=== PATIENT | female | born 1970 | race Caucasian/White ===

== ENCOUNTER 2018-09-17 16:18 | Inpatient (IN) | payer OTHER ==
[2018-09-17 22:25] VITALS: BMI 21.2
--- NOTE | 2018-09-18 01:00 | HP ---
COWS - Scale Resting Pulse: 1= [place] 81-100 Sweatin=Flushed/Facial Moisture Restless Observation: 1= Difficult to Sit Still Pupil Size: 2= Moderately Dilated (Pupils = 5 mm) Bone or Joint Aches: 2= Severe Diffuse Aches Runny Nose/ Eye Tearin= Runny Nose/Eyes GI Upset > 30mins: 1= Stomach Cramp Tremor Observation: 4= Gross Tremor/Twitching Yawning Observation: 1= 1-2x During Session Anxiety or Irritability: 1=Feels Anxious/Irritable Goose Flesh Skin: 0=Smooth Skin COWS Score: 17 CIWA Score Nausea/Vomitin Muscle Tremors: 4-Moderate,w/Arms Extend Anxiety: 1-Mildly Anxious Agitation: 1-Slight > Activity Paroxysmal Sweats: 3 (Increased facial mositure) Orientation: 0-Oriented Tacttile Disturbances: 0-None Auditory Disturbances: 0-None Visual Disturbances: 0-None Headache: 2-Mild CIWA-Ar Total Score: 14 - Admission Criteria OASAS Guidelines: Admission for Medically Managed Detox: Requires at least one of the followin. CIWA greater than 12 2. Seizures within the past 24 hours 3. Delirium tremens within the past 24 hours 4. Hallucinations within the past 24 hours 5. Acute intervention needed for co occurring medical disorder 6. Acute intervention needed for co occurring psychiatric disorder 7. Severe withdrawal that cannot be handled at a lower level of care (continued vomiting, continued diarrhea, abnormal vital signs) requiring intravenous medication and/or fluids 8. Patient presents the following: CIWA greater than 12 Admission Criteria Met: Admission criteria met Admission ROS [facility] Chief Complaint: heroin and alcohol withdrawal. Allergies/Adverse Reactions: Allergies Allergy/AdvReac Type Severity Reaction Status Date / Time No Known Drug Allergies Allergy Verified 09/17/18 22:14 raw onion Allergy Mild Nausea Uncoded 09/17/18 22:13 History of Present Illness: 48 yo w/ heroin and alcohol withdrawal presenting for detox. Was in [facility] ED from 09/15-09/[address] [facility] for detox. States seen in [facility] ED 3 days ago and dx w/ a vertebral fx. Heroin use since age 25. Current use decreases to 12 bags/day for last 4-5 months. Re-uses needles. Denies sharing needles or works. No Narcan. States Oxycodone given in ED Alcohol use since age 14. Current use 1 pint/day x past 4-5 months. Illicit Methadone use x 1- 2 times in past month. Cocaine use since age 19. Nasal Hx: seizures - last 9 months ago. Anup hx overdoses. U-tox (+) OPI, KATARINA, FEN, OXY, MTD KIM = 0 HCG - neg Homeless. Denies recent incarceration. PMHx: Chronic back pain w/ scitaica, gastric ulcer disease w/ GERD; heart problems w/past endocarditis, hx Lyme's disease; vertebral fx MHHx: Denies depression. Denies thoughts of harming self or others. Patient Name: Maru Klein Date: 1970 Address: [address] [place] [address] Sex: Female Rx Written Rx Dispensed Drug Quantity Days Supply Prescriber Name 10/28/2017 10/28/2017 alprazolam 2 mg tablet 60 30 Maria Luisa Harper Search Terms: Maru Tarango, 1970 Search Date: 09/18/2018 12:56:26 AM States Searched: [place], [place], [place], [place], [place], [place], [place] The Drug Utilization Report below displays the controlled substance prescriptions, if any, that were dispensed in the indicated state(s). The information displayed on this report is compiled from requests submitted to other states' PMPs, and accurately reflects the information as returned by them. Blank griffiths indicate data not provided by other state. This report was requested by: Sara Chao | Reference #: [id number] Exam Limitations: No Limitations - Ebola screening Have you traveled outside of the country in the last 21 days: No (N) Have you had contact with anyone from an Ebola affected area: No Have you been sick,other than usual withdrawal symptoms: No (Denies recent exposure to measles) Do you have a fever: No - Review of Systems Constitutional: Chills, Diaphoresis, Fever, Changes in sleep (Difficulty falling and staying asleep) EENT: reports: Blurred Vision, Nose Congestion, Dental Problems (Broken and missing teeth. Chews and swallows ok.) Respiratory: reports: Shortness of Breath, SOB with Exertion Cardiac: reports: Chest Pain (chronic w/ deep breath or yawns), Other (Murmur) GI: reports: Diarrhea (soft, brownish, no blood), Nausea, Indigestion (heart burn) : reports: No Symptoms Reported Musculoskeletal: reports: Back Pain (Chronic low back crushing nerve skooting pain "8" w/ radiation to hips down legs. Increases w/ certain positions, l; ifting legs. Improves w/ walking.) Integumentary: reports: No Symptoms Reported Neuro: reports: Headache (achy pressure frontal [place]), Numbness (hands, legs and feet, back), Tremors, Unsteady Gait Endocrine: reports: Intolerance to Cold Hematology: reports: No Symptoms Reported Psychiatric: reports: Judgement Intact, Orientated x3, Agitated, Anxious Other Systems: Reviewed and Negative Patient History - Patient Medical History Hx Anemia: Yes (WAS TOLD SHE HAD ANEMIA) Hx Asthma: No Hx Chronic Obstructive Pulmonary Disease (COPD): No Hx Cancer: No (PRE-CANCEROUS CERVICAL LESION,REMOVED) Hx Cardiac Disorders: No Hx Congestive Heart Failure: No Hx Hypertension: No Hx Hypercholesterolemia: No Hx Pacemaker: No HX Cerebrovascular Accident: No Hx Seizures: Yes (etoh and drug related seizures last 1 1/2 yr ago) Hx Dementia: No Hx Diabetes: No Hx Gastrointestinal Disorders: No Hx Liver Disease: Yes Hx Genitourinary Disorders: No Hx Sexually Transmitted Disorders: Yes (HPV) Hx Renal Disease (ESRD): No Hx Thyroid Disease: Yes ( A TEENAGER SHE HAD HYPERTHYROIDISM) Hx Human Immunodeficiency Virus (HIV): No Hx Hepatitis C: Yes (NEEDS TREATMENT) Hx Depression: No Hx Suicide Attempt: No Hx Bipolar Disorder: No Hx Schizophrenia: No - Patient Surgical History Past Surgical History: Yes Other Surgical History: cervix sx in - PPD History Previous Implant?: Yes Documented Results: Negative w/proof Implanted On Prior R Admission?: Yes Date: 05/07/14 PPD to be Administered?: No - Reproductive History Patient is a Female of Child Bearing Age (11 -55 yrs old): Yes Last Menstrual Period: 04/17/14 Patient : No - Smoking Cessation Smoking history: Current every day smoker Have you smoked in the past 12 months: Yes Aproximately how many cigarettes per day: 20 Hx Chewing Tobacco Use: No Initiated information on smoking cessation: Yes 'Breaking Loose' booklet given: 09/18/18 - Substance & Tx. History Hx Alcohol Use: Yes Hx Substance Use: Yes Substance Use Type: Alcohol, Cocaine, Heroin, Opiates (Illicit MTD) Hx Substance Use Treatment: Yes (detox, rehab, past MMTP) - Substances abused Heroin Substance route: Injection Frequency: Daily Amount used: 12bags Age of first use: 25 Date of last use: 09/15/18 Alcohol Substance route: Oral Frequency: Daily Amount used: 1 pint Age of first use: 14 Date of last use: 09/15/18 Cocaine Substance route: Inhalation Frequency: 1-3 times last 30 days Amount used: 1 dime Age of first use: 19 Date of last use: 09/15/18 Family Disease History - Family Disease History Family Disease History: Diabetes: Mother (HTN), Heart Disease: Mother, Other: Brother (ALCOHOL), Sister (ALCOHOL) Admission Physical Exam [facility] - Vital Signs Vital Signs: Vital Signs - 24 hr 09/17/18 22:08 Temperature 99.9 F H Pulse Rate 87 Respiratory 16 Rate Blood Pressure 118/72 - Physical General Appearance: Yes: Moderate Distress, Thin, Tremorous, Sweating ( Increased facial mositure), Anxious HEENTM: Yes: EOMI, Hearing grossly Normal, Normocephalic, Normal Voice, IVAN ( Pupils = 5 mm), Pharynx Normal, Nasal Congestion, Rhinorrhea Respiratory: Yes: Lungs Clear (O2 sat = 99%), Normal Breath Sounds, No Respiratory Distress Neck: Yes: No masses,lesions,Nodules, Supple Breast: Yes: Breast Exam Deferred Cardiology: Yes: Regular Rhythm, Regular Rate, S1, S2, Murmur Abdominal: Yes: Non Tender, Flat, Soft, Increased Bowel Sounds Genitourinary: Yes: Within Normal Limits Back: Yes: Normal Inspection (No obvious abnormalitie noted) Musculoskeletal: Yes: Other (UInsteady gait) Extremities: Yes: Normal Capillary Refill, Tremors 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 Increased warmth, erythema, and induration (L) carf area ; other areases of increased induration noted on (R) calf and (R) wrist area.) Lymphatic: Yes: Within Normal Limits - Diagnostic (1) Alcohol dependence with uncomplicated withdrawal Current Visit: Yes Status: Acute (2) Opioid dependence with withdrawal Current Visit: Yes Status: Acute (3) Nicotine dependence, uncomplicated Current Visit: Yes Status: Acute (4) Chronic back pain Current Visit: Yes Status: Acute (5) Cellulitis Current Visit: Yes Status: Acute (6) History of endocarditis Current Visit: Yes Status: Acute (7) Cocaine dependence, uncomplicated Current Visit: Yes Status: Acute (8) IVDU (intravenous drug user) Current Visit: Yes Status: Acute (9) GERD (gastroesophageal reflux disease) Current Visit: Yes Status: Acute (10) Hx of Lyme disease Current Visit: Yes Status: Acute Cleared for Admission S - Detox or Rehab [facility] Level of Care: Medically Managed Detox Regimen/Protocol: Methadone/Librium Claeared for Rehab Admission: No Breathalyzer - Breathalyzer Breathalyzer: 0 Urine Drug Screen - Test Device Lot number: [id number] Expiration date: 05/20/20 - Control Is test valid?: Yes - Results Drug screen NEGATIVE: No Urine drug screen results: KATARINA-Cocaine, FEN-Fentanyl, MOP-Opiates, OXY-Oxycodone , MTD-Methadone Inpatient Rehab Admission - Rehab Decision to Admit Inpatient rehab admission?: No
[2018-09-18] MEDS ORDERED: chlordiazePOXIDE HCL 25 MG CAPSULE PO ONE (01:45)
[2018-09-18] MEDS ORDERED: METHADONE HCL 10 MG TABLET (FOR DETOX USE ONLY) PO ONE ×2 (01:45→10:00)
[2018-09-18] MEDS ORDERED: cloNIDine HCL 0.1 MG TABLET PO PRN (01:45)
[2018-09-18] MEDS ORDERED: MAG HYDROX/AL HYDROX/SIMETH 30 ML UNIT-DOSE CUP PO PRN (01:47)
[2018-09-18] MEDS ORDERED: NICOTINE POLACRILEX 2 MG GUM BUC PRN (01:47)
[2018-09-18] MEDS ORDERED: ACETAMINOPHEN 325 MG TABLET (FP) PO PRN ×2 (01:47)
[2018-09-18] MEDS ORDERED: MAGNESIUM HYDROX 2400MG/30ML ORAL SUSPENSION 30 ML CUP PO PRN (01:47)
[2018-09-18] MEDS ORDERED: IBUPROFEN 400 MG TABLET (FP) PO PRN (01:47)
[2018-09-18] MEDS ORDERED: MAGNESIUM CITRATE 300 ML BOTTLE PO PRN (01:47)
[2018-09-18] MEDS ORDERED: MENTHOL/PHENOL 1 EACH UD MM PRN (01:47)
[2018-09-18] MEDS: CEPHALEXIN MONOHYDRATE 500 MG CAPSULE (UD) PO SCH ×3 (06:34→18:26)
[2018-09-18] MEDS: GABAPENTIN 100 MG CAPSULE (FP) PO SCH ×3 (06:34→22:37)
[2018-09-18] MEDS: chlordiazePOXIDE HCL 25 MG CAPSULE PO SCH ×4 (06:34→22:37)
--- NOTE | 2018-09-18 09:51 | PN ---
S CIWA - CIWA Score Nausea/Vomitin-No Nausea/No Vomiting Muscle Tremors: 2 Anxiety: 2 Agitation: 2 Paroxysmal Sweats: 4-Forehead w/Sweat Beads Orientation: 0-Oriented Tacttile Disturbances: 0-None Auditory Disturbances: 0-None Visual Disturbances: 0-None Headache: 2-Mild CIWA-Ar Total Score: 12 S COWS - Scale Resting Pulse: 0= [place] 80 or Below Sweatin=Flushed/Facial Moisture Restless Observation: 1= Difficult to Sit Still Pupil Size: 0= Normal to Room Light Bone or Joint Aches: 1= Mild Discomfort Runny Nose/ Eye Tearin= None GI Upset > 30mins: 0= None Tremor Observation of Outstretched Hands: 2= Slight Tremor Visible Yawning Observation: 2= >3x During Session Anxiety or Irritability: 2=Irritable/Anxious Goose Flesh Skin: 0=Smooth Skin COWS Score: 10 S Progress Note (SOAP) Subjective: c/o sweats, irritability, anxiety, headache, and shakes. Objective: 09/18/18 09:50 Vital Signs 09/18/18 09/18/18 02:45 06:00 Temperature 99.5 F 98.4 F Pulse Rate 76 64 Respiratory 16 16 Rate Blood Pressure 108/61 100/64 Labs pending. Assessment: 09/18/18 09:50 AOX3, in no acute distress Full ROM, ambulating in the unit. withdrawal symptoms. Plan: continue detox increase fluids.
[2018-09-18] MEDS: LACTOBACILLUS ACIDOPHILUS 1 TABLET PO SCH (10:28)
[2018-09-18 10:30] LABS: ALBUMIN 2.2 g/dl (3.4-5.0); BILIRUBIN,TOTAL 0.2 mg/dL (0.2-1); BLOOD UREA NITROGEN 15.9 mg/dL (7-18); CALCIUM 8.2 mg/dL (8.5-10.1); CREATININE 0.8 mg/dL (0.55-1.3); POTASSIUM 3.4 mmol/L (3.5-5.1); TOT PROT 7.7 g/dl (6.4-8.2)
[2018-09-18] MEDS: PRENATAL VITAMINS W/ FOLIC ACID TABLET (FP) PO SCH (10:41)
[2018-09-18 10:42] LABS: HEMATOCRIT 31.8 % (32.4-45.2); HEMOGLOBIN 10.6 GM/dL (10.7-15.3); MCHC 33.2 g/dl (32.0-36.0); MEAN CELL VOLUME 84.3 fl (80-96); MEAN PLT VOLUME 7.3 fl (7.5-11.1); RBC 3.78 M/mm3 (3.60-5.2); RDW 16.4 % (11.6-15.6)
[2018-09-18] MEDS: NICOTINE 21 MG/24 HOURS TOPICAL PATCH TD SCH (10:42)
[2018-09-18 11:33] LABS: PLATELET COUNT 335 K/MM3 (134-434)
[2018-09-18] MEDS: THIAMINE HCL 100 MG TABLET (FP) PO SCH (22:37)
[2018-09-19] MEDS: CEPHALEXIN MONOHYDRATE 500 MG CAPSULE (UD) PO SCH ×4 (01:04→17:41)
[2018-09-19] MEDS: chlordiazePOXIDE HCL 25 MG CAPSULE PO SCH ×4 (07:30→22:35)
[2018-09-19] MEDS: GABAPENTIN 100 MG CAPSULE (FP) PO SCH ×3 (07:30→22:34)
[2018-09-19] MEDS ORDERED: METHADONE HCL 10 MG TABLET (FOR DETOX USE ONLY) PO ONE (10:00)
[2018-09-19] MEDS: LACTOBACILLUS ACIDOPHILUS 1 TABLET PO SCH (10:28)
[2018-09-19] MEDS: PRENATAL VITAMINS W/ FOLIC ACID TABLET (FP) PO SCH (10:28)
[2018-09-19] MEDS: NICOTINE 21 MG/24 HOURS TOPICAL PATCH TD SCH (10:40)
--- NOTE | 2018-09-19 13:42 | PN ---
[facility] CIWA - CIWA Score Nausea/Vomitin-Mild Nausea/No Vomiting Muscle Tremors: 3 Anxiety: 3 Agitation: 3 Paroxysmal Sweats: 3 Orientation: 0-Oriented Tacttile Disturbances: 0-None Auditory Disturbances: 0-None Visual Disturbances: 0-None Headache: 0-None Present CIWA-Ar Total Score: 13 S COWS - Scale Resting Pulse: 0= [place] 80 or Below Sweatin= Chills/Flushing Restless Observation: 3= Extraneous Movement Pupil Size: 0= Normal to Room Light Bone or Joint Aches: 2= Severe Diffuse Aches Runny Nose/ Eye Tearin= Nasal Congestion GI Upset > 30mins: 1= Stomach Cramp Tremor Observation of Outstretched Hands: 2= Slight Tremor Visible Yawning Observation: 0= None Anxiety or Irritability: 2=Irritable/Anxious Goose Flesh Skin: 0=Smooth Skin COWS Score: 12 S Progress Note (SOAP) Subjective: Profuse sweating, runny nose, abdominal cramps, headache, interrupted sleep, angry, irritable Objective: 09/19/18 13:39 Last Vital Signs Temp Pulse Resp BP Pulse Ox 96.8 F L 70 18 94/54 L 09/19/18 06:00 09/19/18 06:00 09/19/18 06:30 09/19/18 06:00 Hypotension noted (94/54), asymptomatic Laboratory Tests 09/18/18 09/18/18 09/18/18 07:50 07:50 07:50 WBC 7.0 RBC 3.78 Hgb 10.6 L Hct 31.8 L D MCV 84.3 MCH 28.0 MCHC 33.2 RDW 16.4 H Plt Count 335 D MPV 7.3 L D Sodium 140 Potassium 3.4 L Chloride 105 Carbon Dioxide 30 Anion Gap 5 L BUN 15.9 Creatinine 0.8 Est GFR (CKD-EPI)AfAm 101.75 Est GFR (CKD-EPI)NonAf 87.79 Random Glucose 100 Calcium 8.2 L Total Bilirubin 0.2 AST 32 ALT 41 Alkaline Phosphatase 202 H Total Protein 7.7 Albumin 2.2 L RPR Titer Nonreactive Labs reviewed: mild anemia, K 3.4, Ca 8.2, alk phos 202 Assessment: 09/19/18 13:50 Withdrawal symptoms Noted with hypokalemia, anemia, hypocalcemia and elevated alk phos Plan: Continue detox Encouraged PO water hydration Hypokalemia: K Dur 40 mEq PO x 1 dose, repeat serum K level on Thursday Anemia: could be r/t substance use, need anemia workup (can be done by PCP) Hypocalcemia: start calcium carbonate 650mg bid x 3 days, repeat serum calcium level on Thursday Elevated alk phos: could be r/t substance use or possible trauma; repeat alk phos level
[2018-09-19] MEDS ORDERED: POTASSIUM CHLORIDE TABS 20 MEQ TABLET.ER (FP) PO ONE (13:46)
[2018-09-19] MEDS: chlordiazePOXIDE HCL 25 MG CAPSULE PO PRN (14:56)
[2018-09-19] MEDS: METHOCARBAMOL 500 MG TABLET PO PRN ×2 (17:41→23:29)
[2018-09-19] MEDS: CALCIUM CARBONATE 650 MG TABLET PO SCH (22:34)
[2018-09-19] MEDS: THIAMINE HCL 100 MG TABLET (FP) PO SCH (22:34)
[2018-09-19] MEDS: MELATONIN 5 MG TABLETS PO PRN (22:35)
[2018-09-19] MEDS ORDERED: ACETAMINOPHEN 325 MG TABLET (FP) PO PRN (23:48)
[2018-09-20] MEDS: LIDOCAINE PATCH REMOVAL MC SCH ×2 (00:03→22:53)
[2018-09-20] MEDS: NAPROXEN 500 MG TABLET (FP) PO SCH ×3 (00:06→22:53)
--- NOTE | 2018-09-20 00:09 | EKG ---
Test Reason : Blood Pressure : / mmHG Vent. Rate : 076 BPM Atrial Rate : 076 BPM P-R Int : 124 ms QRS Dur : 082 ms QT Int : 372 ms P-R-T Axes : 043 057 060 degrees QTc Int : 418 ms POOR DATA QUALITY, INTERPRETATION MAY BE ADVERSELY AFFECTED NORMAL SINUS RHYTHM NORMAL ECG NO PREVIOUS ECGS AVAILABLE Confirmed by MD Khushbu, Abraham ([id number]) on 09/20/2018 12:08:46 AM Referred By: Confirmed By:Abraham Ríos MD
[2018-09-20] MEDS: CEPHALEXIN MONOHYDRATE 500 MG CAPSULE (UD) PO SCH ×5 (00:12→23:33)
[2018-09-20] MEDS ORDERED: KETOROLAC TROMETHAMINE 30 MG/1 ML VIAL IM ONE (02:38)
[2018-09-20] MEDS: chlordiazePOXIDE HCL 25 MG CAPSULE PO PRN (02:54)
[2018-09-20] MEDS ORDERED: chlordiazePOXIDE HCL 10 MG CAPSULE PO PRN (05:00)
[2018-09-20] MEDS: GABAPENTIN 100 MG CAPSULE (FP) PO SCH ×3 (07:01→22:53)
[2018-09-20] MEDS: chlordiazePOXIDE HCL 10 MG CAPSULE PO SCH ×4 (07:01→22:53)
[2018-09-20] MEDS ORDERED: METHADONE HCL 10 MG TABLET (FOR DETOX USE ONLY) PO ONE (10:00)
[2018-09-20] MEDS: LIDOCAINE 5% TOPICAL PATCH TP SCH (10:46)
[2018-09-20] MEDS: PRENATAL VITAMINS W/ FOLIC ACID TABLET (FP) PO SCH (10:46)
[2018-09-20] MEDS: LACTOBACILLUS ACIDOPHILUS 1 TABLET PO SCH (10:46)
[2018-09-20] MEDS: NICOTINE 21 MG/24 HOURS TOPICAL PATCH TD SCH (10:47)
[2018-09-20] MEDS: CALCIUM CARBONATE 650 MG TABLET PO SCH ×2 (11:00→22:53)
--- NOTE | 2018-09-20 12:20 | PN ---
S CIWA - CIWA Score Nausea/Vomitin-No Nausea/No Vomiting Muscle Tremors: 4-Moderate,w/Arms Extend Anxiety: 4-Mod. Anxious/Guarded Agitation: 4-Moderately Restless Paroxysmal Sweats: 1-Minimal Palms Moist Orientation: 0-Oriented Tacttile Disturbances: 0-None Auditory Disturbances: 0-None Visual Disturbances: 0-None Headache: 0-None Present CIWA-Ar Total Score: 13 BHS COWS - Scale Resting Pulse: 1= [place] 81-100 Sweatin=Flushed/Facial Moisture Restless Observation: 0= Sits Still Pupil Size: 0= Normal to Room Light Bone or Joint Aches: 2= Severe Diffuse Aches Runny Nose/ Eye Tearin= Nasal Congestion GI Upset > 30mins: 0= None Tremor Observation of Outstretched Hands: 2= Slight Tremor Visible Yawning Observation: 2= >3x During Session Anxiety or Irritability: 2=Irritable/Anxious Goose Flesh Skin: 0=Smooth Skin COWS Score: 12 S Progress Note (SOAP) Subjective: shakes sweats agitation body aches/chronic interrupted sleep irritable Objective: 09/20/18 12:19 Vital Signs Temperature 97.0 F L 09/20/18 09:17 Pulse Rate 83 09/20/18 09:17 Respiratory Rate 18 09/20/18 09:17 Blood Pressure 108/87 09/20/18 09:17 O2 Sat by Pulse Oximetry (%) Laboratory Tests 09/18/18 09/18/18 09/18/18 00:10 07:50 07:50 WBC 7.0 RBC 3.78 Hgb 10.6 L Hct 31.8 L D MCV 84.3 MCH 28.0 MCHC 33.2 RDW 16.4 H Plt Count 335 D MPV 7.3 L D Sodium 140 Potassium 3.4 L Chloride 105 Carbon Dioxide 30 Anion Gap 5 L BUN 15.9 Creatinine 0.8 Est GFR (CKD-EPI)AfAm 101.75 Est GFR (CKD-EPI)NonAf 87.79 Random Glucose 100 Calcium 8.2 L Total Bilirubin 0.2 AST 32 ALT 41 Alkaline Phosphatase 202 H Total Protein 7.7 Albumin 2.2 L POC Urine HCG, Qual Negative RPR Titer 09/18/18 07:50 WBC RBC Hgb Hct MCV MCH MCHC RDW Plt Count MPV Sodium Potassium Chloride Carbon Dioxide Anion Gap BUN Creatinine Est GFR (CKD-EPI)AfAm Est GFR (CKD-EPI)NonAf Random Glucose Calcium Total Bilirubin AST ALT Alkaline Phosphatase Total Protein Albumin POC Urine HCG, Qual RPR Titer Nonreactive aaox3 oob to wheelchair for ambulating no acute distress pending potassium repeated labs Assessment: 09/20/18 12:20 withdrawal sx Plan: continue detox increase fluids
[2018-09-20] MEDS: METHOCARBAMOL 500 MG TABLET PO PRN (13:04)
--- NOTE | 2018-09-20 15:07 | PN ---
[facility] Progress Note Note: pt being sent to [place] ED for evaluation for pain 03/01 as per pt. Pt is crying, extreme pain to lower back and unsteady with ambulating. report given to Dr. Karlene Lamar. pt is to complete her last two days of detox and be followed by pain management at [facility].
[2018-09-20] MEDS: THIAMINE HCL 100 MG TABLET (FP) PO SCH (22:54)
[2018-09-21] MEDS: MELATONIN 5 MG TABLETS PO PRN (02:22)
[2018-09-21] MEDS: METHOCARBAMOL 500 MG TABLET PO PRN ×2 (02:27→09:06)
--- NOTE | 2018-09-21 02:58 | PN ---
Jessica Progress Note Note: Patient returned from [facility] Ed, via ambulance, alert and oriented. [facility] Ed report reviewed and summary is: MRI consistent with L1 endplate fracture Case discussed with neurosurgery by the emergency department resident Plan for brace which will be ordered by the neurosurgical team, patient to be returned to [facility] for continued rehabilitation Discussed w/ Dr. Richardson the patients continued treatment. Patient will get robaxin and lidocaine patch. Will also get Toradol PO BID for pain. Patient has an appointment w/ own orthopedics on September but is not sure when she will be. Patient is unsure if will be going to rehab at [facility] or another facility and then f/u w/ [facility] post discharge.
[2018-09-21] MEDS ORDERED: KETOROLAC TROMETHAMINE 30 MG/1 ML VIAL IM ONE (04:48)
[2018-09-21] MEDS: CEPHALEXIN MONOHYDRATE 500 MG CAPSULE (UD) PO SCH ×2 (05:00→12:26)
[2018-09-21] MEDS ORDERED: chlordiazePOXIDE HCL 10 MG CAPSULE PO SCH (05:00)
[2018-09-21] MEDS: GABAPENTIN 100 MG CAPSULE (FP) PO SCH (05:00)
[2018-09-21] MEDS: CALCIUM CARBONATE 650 MG TABLET PO SCH (09:05)
[2018-09-21] MEDS: LACTOBACILLUS ACIDOPHILUS 1 TABLET PO SCH (09:05)
[2018-09-21] MEDS: PRENATAL VITAMINS W/ FOLIC ACID TABLET (FP) PO SCH (09:05)
[2018-09-21] MEDS: LIDOCAINE 5% TOPICAL PATCH TP SCH (09:07)
[2018-09-21] MEDS: NICOTINE 21 MG/24 HOURS TOPICAL PATCH TD SCH (09:08)
[2018-09-21] MEDS: NAPROXEN 500 MG TABLET (FP) PO SCH (09:08)
[2018-09-21] MEDS ORDERED: METHADONE HCL 10 MG TABLET (FOR DETOX USE ONLY) PO ONE (10:00)
--- NOTE | 2018-09-21 11:32 | PN ---
[facility] Progress Note Note: pt was sent back from [place] ED after a thorough evaluation regarding her chronic back pain. ER MD recommendation is to continue with roboxin and lidocaine patches and Rx were also provided to pt. The same medication is also being offered and supplied to pt while in detox, however the medication pt is receiving while in detox is not sufficient and not meeting her demand therefore she is not pain free. All disciplines, medical staff and nursing in agreement that pt will be picked up and driven to [facility] a place she is familiar with and have addressed her medical issues in the past. Pt insisted she will not go and rather go on her own on a later date. Pt refused aftercare inpatient rehab as well. Pt was referred and will be driven to [facility] in the [place] near [facility]. Pt did not hesitate with the plan of a safe discharge.
--- NOTE | 2018-09-21 11:36 | DS ---
[facility] Detox Discharge Summary Admission Date: 09/18/18 Discharge Date: 09/21/18 - History Present History: Alcohol Dependence, Cocaine Dependence, Opioid Dependence - Physical Exam Results Vital Signs: Vital Signs Temperature 97.9 F 09/21/18 09:57 Pulse Rate 85 09/21/18 09:57 Respiratory Rate 16 09/21/18 09:57 Blood Pressure 107/51 L 09/21/18 09:57 O2 Sat by Pulse Oximetry (%) - Treatment Hospital Course: Detox Protocol Followed, Detoxed Safely, Responded well, Discharged Condition Good, Rehab Referral Accepted - Diagnosis (1) Alcohol dependence with uncomplicated withdrawal Current Visit: Yes Status: Chronic (2) Chronic back pain Current Visit: Yes Status: Chronic Qualifiers: Back pain laterality: unspecified Sciatica laterality: sciatica laterality unspecified (3) Cocaine dependence, uncomplicated Current Visit: Yes Status: Chronic (4) GERD (gastroesophageal reflux disease) Current Visit: Yes Status: Chronic Qualifiers: Esophagitis presence: without esophagitis Qualified Code(s): K21.9 - Gastro -esophageal reflux disease without esophagitis (5) History of endocarditis Current Visit: No Status: Suspected (6) Hx of Lyme disease Current Visit: No Status: Suspected (7) IVDU (intravenous drug user) Current Visit: Yes Status: Chronic (8) Nicotine dependence, uncomplicated Current Visit: Yes Status: Chronic Qualifiers: Nicotine product type: cigarettes Qualified Code(s): F17.210 - Nicotine dependence, cigarettes, uncomplicated (9) Opioid dependence with withdrawal Current Visit: Yes Status: Chronic (10) Social anxiety disorder Current Visit: No Status: Acute (11) Spine fracture Current Visit: No Status: Suspected Qualifiers: Encounter type: initial encounter Cervical vertebra fracture level: unspecified cervical vertebra - AMA Did Patient Leave Against Medical Advice: No (referred to [facility] )
[2018-09-21 12:56] VITALS: BP 106/58; PULSE 89; TEMP 98.1
[2018-09-22] MEDS ORDERED: METHADONE HCL 5 MG TABLET (FOR DETOX USE ONLY) PO ONE (06:00)
== END 2018-09-21 15:25 | disposition home or self-care (01) | DRG 897 ==
LOC: YASAS 16:18 → Y6N 09-18 00:04
PROVIDERS: ADMIT Surgery; ATTEND Surgery
PROC: HZ2ZZZZ Detoxification Services for Substance Abuse Treatment (ICD-10-PCS; principal; 2018-09-18)
DX: F11.23 Opioid dependence with withdrawal (principal); F14.20 Cocaine dependence, uncomplicated; L03.116 Cellulitis of left lower limb; F10.230 Alcohol dependence with withdrawal, uncomplicated; F17.210 Nicotine dependence, cigarettes, uncomplicated; F40.10 Social phobia, unspecified; B18.2 Chronic viral hepatitis C; I95.9 Hypotension, unspecified; K21.9 Gastro-esophageal reflux disease without esophagitis; M54.30 Sciatica, unspecified side; G89.29 Other chronic pain; E87.6 Hypokalemia; E83.51 Hypocalcemia; R94.5 Abnormal results of liver function studies; S32.019D Unspecified fracture of first lumbar vertebra, subsequent encounter for fracture with routine healing; X58.XXXD Exposure to other specified factors, subsequent encounter
CPT/HCPCS: 36415; 80053; 81025; 84132; 85027; 86480; 86593; 93005; 93010; J0735

== ENCOUNTER 2018-09-20 16:29 | Emergency (ER) | payer OTHER ==
[2018-09-20 17:06] VITALS: BP 116/63; PULSE 93; TEMP 98; BMI 19.3
[2018-09-20] MEDS ORDERED: KETOROLAC TROMETHAMINE 60 MG/2 ML VIAL IM ONE (17:13)
[2018-09-20] MEDS ORDERED: KETOROLAC TROMETHAMINE 60 MG/2 ML VIAL ONE (17:14)
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
[2018-09-20] MEDS ORDERED: LIDOCAINE 5% TOPICAL PATCH TP ONE (18:37)
[2018-09-20] MEDS ORDERED: guaiFENesin/D-M SUGAR-FREE/ACLHOL-FREE 118 ML BOTTLE PO ONE (18:38)
[2018-09-20] MEDS ORDERED: METHOCARBAMOL 500 MG TABLET PO ONE (18:41)
[2018-09-20] MEDS ORDERED: LIDOCAINE 5% TOPICAL PATCH ONE (18:43)
[2018-09-20] MEDS ORDERED: METHOCARBAMOL 500 MG TABLET ONE (18:43)
[2018-09-20 20:48] LABS: BASO % 0.6 % (0-2.0); EOS % 1.9 % (0-4.5); HEMATOCRIT 29.7 % (32.4-45.2); MCHC 33.6 g/dl (32.0-36.0); MEAN CELL VOLUME 83.4 fl (80-96); MEAN PLT VOLUME 6.5 fl (7.5-11.1); MONO % 7.6 % (3.8-10.2); NEUT % 57.9 % (42.8-82.8); PLATELET COUNT 468 K/MM3 (134-434); RBC 3.57 M/mm3 (3.60-5.2); RDW 16.6 % (11.6-15.6); WHITE BLOOD COUNT 10.2 K/mm3 (4.0-10.0)
[2018-09-20 21:30] LABS: ALBUMIN 2.6 g/dl (3.4-5.0); BILIRUBIN,TOTAL 0.2 mg/dL (0.2-1); BLOOD UREA NITROGEN 20.6 mg/dL (7-18); CALCIUM 8.5 mg/dL (8.5-10.1); CREATININE 0.8 mg/dL (0.55-1.3); POTASSIUM 4.8 mmol/L (3.5-5.1); TOT PROT 8.1 g/dl (6.4-8.2)
[2018-09-20] MEDS ORDERED: LIDOCAINE PATCH REMOVAL MC SCH (22:00)
[2018-09-20] MEDS ORDERED: KETOROLAC TROMETHAMINE 30 MG/1 ML VIAL IVPUSH ONE (23:06)
[2018-09-20] MEDS ORDERED: KETOROLAC TROMETHAMINE 30 MG/1 ML VIAL ONE (23:08)
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
== END 2018-09-21 01:16 | disposition home or self-care (01) ==
LOC: JER 16:29
PROC: 3E0233Z Introduction of Anti-inflammatory into Muscle, Percutaneous Approach (ICD-10-PCS; principal; 2018-09-20)
PROC: 3E0333Z Introduction of Anti-inflammatory into Peripheral Vein, Percutaneous Approach (ICD-10-PCS; 2018-09-20)
DX: S32.018A Other fracture of first lumbar vertebra, initial encounter for closed fracture (principal); V03.90XA Pedestrian on foot injured in collision with car, pick-up truck or van, unspecified whether traffic or nontraffic accident, initial encounter; Y92.414 Local residential or business street as the place of occurrence of the external cause; Y93.89 Activity, other specified; Y99.8 Other external cause status; M54.42 Lumbago with sciatica, left side; F10.10 Alcohol abuse, uncomplicated; F11.10 Opioid abuse, uncomplicated
CPT/HCPCS: 36415; 72158-TC; 80053; 85025; 96372; 96374; 99282-25; A9579

== ENCOUNTER 2018-09-21 17:02 | Inpatient (IN) | payer OTHER ==
[2018-09-21] MEDS ORDERED: KETOROLAC TROMETHAMINE 30 MG/1 ML VIAL IM ONE (17:38)
[2018-09-21] MEDS ORDERED: LIDOCAINE 5% TOPICAL PATCH TP ONE (17:38)
[2018-09-21] MEDS ORDERED: ACETAMINOPHEN 500 MG TABLET (FP) PO ONE (17:38)
[2018-09-21] MEDS ORDERED: LIDOCAINE 5% TOPICAL PATCH ONE (17:43)
[2018-09-21] MEDS ORDERED: ACETAMINOPHEN 325 MG TABLET (FP) ONE (17:43)
[2018-09-21] MEDS ORDERED: KETOROLAC TROMETHAMINE 30 MG/1 ML VIAL ONE (17:44)
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
[2018-09-21] MEDS ORDERED: LIDOCAINE PATCH REMOVAL MC SCH (22:00)
[2018-09-21] MEDS ORDERED: ACETAMINOPHEN 325 MG TABLET (FP) PO PRN (23:00)
[2018-09-22] MEDS ORDERED: LIDOCAINE 5% TOPICAL PATCH TP ONE (00:53)
[2018-09-22] MEDS ORDERED: IBUPROFEN 600 MG TABLET (FP) PO ONE (00:56)
[2018-09-22] MEDS ORDERED: MELATONIN 5 MG TABLETS PO ONE (01:14)
[2018-09-22] MEDS ORDERED: CYCLOBENZAPRINE HCL 10 MG TABLET (FP) PO ONE (01:15)
[2018-09-22 05:54] VITALS: BMI 22.3
--- NOTE | 2018-09-22 10:42 | EKG ---
Test Reason : Blood Pressure : / mmHG Vent. Rate : 076 BPM Atrial Rate : 076 BPM P-R Int : 128 ms QRS Dur : 084 ms QT Int : 392 ms P-R-T Axes : 038 065 065 degrees QTc Int : 441 ms NORMAL SINUS RHYTHM NORMAL ECG WHEN COMPARED WITH ECG OF 18-SEP-2018 02:17, NO SIGNIFICANT CHANGE WAS FOUND Confirmed by DIPAK GUERRA MD ([id number]) on 09/22/2018 10:42:20 AM Referred By: Confirmed By:DIPAK GUERRA MD
[2018-09-22 11:45] LABS: BASO % 0.7 % (0-2.0); HEMATOCRIT 32.4 % (32.4-45.2); HEMOGLOBIN 10.7 GM/dL (10.7-15.3); LYMPH % 30.9 % (8-40); MCH 27.8 pg (25.7-33.7); MCHC 33.2 g/dl (32.0-36.0); MEAN PLT VOLUME 6.6 fl (7.5-11.1); MONO % 10.4 % (3.8-10.2); PLATELET COUNT 489 K/MM3 (134-434); RBC 3.85 M/mm3 (3.60-5.2); RDW 16.9 % (11.6-15.6); WHITE BLOOD COUNT 8.3 K/mm3 (4.0-10.0)
[2018-09-22 12:06] LABS: INR 1.11 (0.83-1.09); PROTHROMBIN TIME (PATIENT) 13.1 SEC (9.7-13.0)
[2018-09-22 12:09] LABS: ALBUMIN 2.6 g/dl (3.4-5.0); BILIRUBIN,TOTAL 0.2 mg/dL (0.2-1); BLOOD UREA NITROGEN 19.9 mg/dL (7-18); CREATININE 0.7 mg/dL (0.55-1.3); MAGNESIUM 2.3 mg/dL (1.8-2.4); PHOSPHOROUS 4.8 mg/dL (2.5-4.9); POTASSIUM 4.8 mmol/L (3.5-5.1); TOT PROT 8.8 g/dl (6.4-8.2)
--- NOTE | 2018-09-22 14:19 | ECHO ---
Name: SAIMA ROLLINS Exam:Adult Echocardiogram Study Date: 09/22/2018 11:49 AM Age: 48 yrs Reason For Study: ENDOCARDITIS Height: 65 in Weight: 134 lb BSA: 1.7 m2 MMode/2D Measurements & Calculations IVSd: 0.76 cm Ao root diam: 2.6 cm LVIDd: 4.8 cm LVIDs: 3.3 cm LVPWd: 0.76 cm EDV(Teich): 107.0 ml LVOT diam: 2.0 cm ESV(Teich): 45.0 ml Doppler Measurements & Calculations MV E max gerson: 62.7 cm/sec Ao V2 max: 138.1 cm/sec MV A max gerson: 74.0 cm/sec Ao max P.6 mmHg MV E/A: 0.85 Ao V2 mean: 105.3 cm/sec MV dec time: 0.18 sec Ao mean P.8 mmHg Ao V2 VTI: 29.6 cm KAYLEEN(I,D): 2.2 cm2 KAYLEEN(V,D): 2.4 cm2 LV V1 max P.4 mmHg SV(LVOT): 65.0 ml LV V1 mean P.4 mmHg LV V1 max: 104.6 cm/sec LV V1 mean: 73.6 cm/sec LV V1 VTI: 20.5 cm TR max gerson: 220.7 cm/sec Med Peak E' Gerson: 9.8 cm/sec TR max P.6 mmHg Med E/e': 6.4 Lat Peak E' Gerson: 11.8 cm/sec Lat E/e': 5.3 Procedure The study was technically difficult with many images being suboptimal in quality. A two-dimensional transthoracic echocardiogram with color flow and Doppler was performed. Left Ventricle The left ventricular size, thickness and function are normal. The left ventricular ejection fraction is normal. E/A reversal consistent with but not diagnostic of poor LV compliance. The left ventricular w all motion is normal. Right Ventricle The right ventricle is not well visualized. Atria Normal left and right atrial size and function. Mitral Valve There is mild mitral valve thickening. There is no mitral valve stenosis. There is mild mitral regurg itation. Tricuspid Valve There is mild to moderate tricuspid valve thickening. There is no tricuspid stenosis. There is mild t o moderate tricuspid regurgitation. Right ventricular systolic pressure is normal. Aortic Valve The aortic valve is not well visualized. No hemodynamically significant valvular aortic stenosis. No aortic regurgitation is present. Pulmonic Valve The pulmonic valve is not well visualized. Great Vessels The aortic root is normal size. Pericardium/Pleura There is no pericardial effusion. Interpretation Summary There is mild to moderate tricuspid regurgitation. Right ventricular systolic pressure is normal. E/A reversal consistent with but not diagnostic of poor LV compliance There is mild mitral regurgitation. The left ventricular wall motion is normal. The left ventricular ejection fraction is normal. The left ventricular size, thickness and function are normal MD Oscar Amaro 09/22/2018 02:19 PM
[2018-09-22] MEDS: KETOROLAC TROMETHAMINE 30 MG/1 ML VIAL IM PRN ×2 (14:26→21:32)
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
--- NOTE | 2018-09-22 16:29 | PN ---
Teaching Attending Note Name of Resident: Osiris Macario ATTENDING PHYSICIAN STATEMENT I saw and evaluated the patient. I reviewed the resident's note and discussed the case with the resident. I agree with the resident's findings and plan as documented. SUBJECTIVE: Complains of back pain radiating down left leg making it difficult to walk. No fever/chills. No chest pain/palpitations. No bladder/bowel dysfunction. OBJECTIVE: Afebrile, Hemodynamically Stable. Last Vital Signs Temp Pulse Resp BP Pulse Ox 98.3 F 92 H 20 107/63 99 09/22/18 14:55 09/22/18 14:55 09/22/18 10:00 09/22/18 14:55 09/22/18 01:49 HEENT - Atraumatic, Normocephalic. Heart - S1, S2, RRR Lungs - clear to auscultation Abdomen - soft, non-tender. Bowel Sounds normal. Extremities - mild edema, no calf tenderness. +L leg raise. Neuro - AAO x 3. Movement LEs limited by pain. Laboratory Results - last 24 hr 09/22/18 09/22/18 09/22/18 11:08 11:08 11:08 WBC 8.3 RBC 3.85 Hgb 10.7 Hct 32.4 MCV 84.0 MCH 27.8 MCHC 33.2 RDW 16.9 H Plt Count 489 H MPV 6.6 L Absolute Neuts (auto) 4.5 Neutrophils % 55.0 Lymphocytes % 30.9 Monocytes % 10.4 H Eosinophils % 3.0 Basophils % 0.7 Nucleated RBC % 0 PT with INR 13.10 H INR 1.11 H Sodium 137 Potassium 4.8 Chloride 104 Carbon Dioxide 28 Anion Gap 6 L BUN 19.9 H Creatinine 0.7 Est GFR (CKD-EPI)AfAm 119.58 Est GFR (CKD-EPI)NonAf 103.18 Random Glucose 86 Calcium 9.0 Phosphorus 4.8 Magnesium 2.3 Total Bilirubin 0.2 AST 37 ALT 49 Alkaline Phosphatase 241 H Total Protein 8.8 H Albumin 2.6 L Current Medications Generic Name Dose Route Start Last Admin Trade Name Freq PRN Reason Stop Dose Admin Acetaminophen 650 mg 09/21/18 23:00 Tylenol - PO Q6H PRN PAIN Ketorolac Tromethamine 30 mg 09/22/18 13:27 09/22/18 14:26 Toradol Injection - IM 09/27/18 13:26 30 mg Q6H PRN Administration PAIN LEVEL 7 - 10 Miscellaneous 1 each 09/22/18 22:00 Lidoderm Patch Removal MC DAILY@2200 [facility] ASSESSMENT AND PLAN: 48 year old female with history of Polysubstance Abuse (Cocaine, Heroin, Alcohol ), Hepatitis C (untreated), GERD, Lyme Disease, Endocarditis (partially treated as she left [facility]), presents with severe lower back pain radiating down LLE 1 week after fall, found to have L1 compression fracture at [facility] from where she left [facility], and re-presented to [place] last week with complaints of intractable pain, from where she was transferred to [facility] on 09/18/18. She was apparently treated for alcohol withdrawal with chlordiaxepoxide and methadone for opiate. 1. Intractable Back Pain with radiculopathy secondary to L1 compression fracture IV toradol. Lidoderm patches. Hold opiates. Neurosurgery consulted. PT eval. 2. Polysubstance Abuse (cocaine, heroin, alcohol) Apparently completed Detox at [facility] - Addiction Medicine consulted. No signs of withdrawal currently. Not currently on Methadone program Thiamine, MVI, Folate. 3. Bacterial Endocarditis - partially treated, left [facility] before treatment was complete (approximately 2 weeks ago) Repeat Echo and Blood Cx Records requested from [facility] ID consultation for guidance re: further management. Afebrile, Hemodynamically Stable. Will hold off Abx pending ID evaluation. 4. Hepatitis C - never been treated. Does not follow with GI. DVT Px - SCDs pending NeuroSx eval ?intervention
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
[2018-09-22] MEDS: FOLIC ACID 1 MG TABLET (FP) PO SCH (17:37)
[2018-09-22] MEDS: MULTIVITAMINS (DAILY MVI) TABLET (FP) PO SCH (17:37)
[2018-09-22] MEDS: THIAMINE HCL 200 MG/2 ML VIAL IVPB SCH (17:37)
--- NOTE | 2018-09-22 21:10 | PN ---
S Progress Note (SOAP) Subjective: Active Medications Acetaminophen (Tylenol -) 650 mg PO Q6H PRN PRN Reason: PAIN Folic Acid (Folic Acid -) 1 mg PO DAILY [facility] Last Admin: 09/22/18 17:37 Dose: 1 mg Ketorolac Tromethamine (Toradol Injection -) 30 mg IM Q6H PRN PRN Reason: PAIN LEVEL 7 - 10 Stop: 09/27/18 13:26 Last Admin: 09/22/18 14:26 Dose: 30 mg Miscellaneous (Lidoderm Patch Removal) 1 each DAILY@2200 [facility] Multivitamins/Minerals/Vitamin C (Tab-A-Vit -) 1 tab PO DAILY [facility] Last Admin: 09/22/18 17:37 Dose: Not Given Thiamine HCl (Vitamin B1 Injection -) 200 mg IVPB DAILY [facility] Last Admin: 09/22/18 17:37 Dose: 200 mg 48 y.o. female pt referred for consultation , currently asleep , awakened by verbal stimuli , c/o lbp 10/10 , constant , w/ difficulty walking, pain radiates to the posterior aspect of the left leg at times, , requesting Toradol for pain . Denies other c/o . Pt was at [facility] 09/18-09/21 for opiate and etoh detox. Per MR , pt . was in [facility] ED from 09/15-09/17 and then sent to [facility] for detox . seen in [facility] ED 3 days prior and dx w/ a vertebral fx. Of note , pt was in ED @ [facility] [place] 09/20/18 for c/o LBP . Heroin use since age 25. Current use decreases to 12 bags/day for last 4-5 months. Re-uses needles. Denies sharing needles , denies OD . Alcohol use since age 14. Current use 1 pint/day x past 4-5 months. Illicit Methadone use x 1- 2 times in past month. Cocaine use since age 19. PMHx: gastric ulcer disease w/ GERD; heart problems w/past endocarditis, hx Lyme 's disease Objective: wnwd , resting in bed . Abnormal Lab Results 09/22/18 09/22/18 09/22/18 11:08 11:08 11:08 RDW 16.9 H Plt Count 489 H MPV 6.6 L Monocytes % 10.4 H PT with INR 13.10 H INR 1.11 H Anion Gap 6 L BUN 19.9 H Alkaline Phosphatase 241 H Total Protein 8.8 H Albumin 2.6 L Vital Signs - 24 hr 09/22/18 09/22/18 09/22/18 01:49 07:20 10:00 Temperature 98.6 F 97.7 F Pulse Rate 87 69 90 Respiratory 18 20 20 Rate Blood Pressure 126/76 111/67 176/93 H O2 Sat by Pulse 99 Oximetry (%) 09/22/18 14:55 Temperature 98.3 F Pulse Rate 92 H Respiratory Rate Blood Pressure 107/63 O2 Sat by Pulse Oximetry (%) Assessment: opiate dependence alcohol abuse cocaine abuse Plan: Lumbar frx / radiculopathy , restart Flexeril 5 mg q 8 hrs prn , consider Gabapentin 100 mg q 8 hrs, continue Lidoderm patch detox completed 09/21/18 , pt to consider rehab or outpt MMTP upon d/c form facility . Pt refused prior referral to rehab .
[2018-09-22] MEDS: LIDOCAINE PATCH REMOVAL MC SCH (21:25)
[2018-09-22] MEDS: CYCLOBENZAPRINE HCL 10 MG TABLET (FP) PO PRN (21:33)
[2018-09-22] MEDS: LIDOCAINE 5% TOPICAL PATCH TP SCH (21:33)
[2018-09-23] MEDS: KETOROLAC TROMETHAMINE 30 MG/1 ML VIAL IM PRN ×2 (03:21→21:39)
[2018-09-23] MEDS: CYCLOBENZAPRINE HCL 10 MG TABLET (FP) PO PRN ×3 (06:33→23:06)
[2018-09-23 08:24] LABS: BASO % 0.8 % (0-2.0); HEMOGLOBIN 9.9 GM/dL (10.7-15.3); LYMPH % 39.2 % (8-40); MCHC 33.1 g/dl (32.0-36.0); MEAN CELL VOLUME 84.6 fl (80-96); MEAN PLT VOLUME 7.1 fl (7.5-11.1); MONO % 10.1 % (3.8-10.2); NEUT % 45.9 % (42.8-82.8); RBC 3.54 M/mm3 (3.60-5.2); RDW 16.6 % (11.6-15.6); WHITE BLOOD COUNT 6.9 K/mm3 (4.0-10.0)
[2018-09-23 08:34] LABS: INR 1.08 (0.83-1.09); PROTHROMBIN TIME (PATIENT) 12.7 SEC (9.7-13.0)
[2018-09-23 08:36] LABS: ACTIVATED PTT 33.7 SECONDS (25.2-36.5)
[2018-09-23 08:59] LABS: ALBUMIN 2.4 g/dl (3.4-5.0); BILIRUBIN,TOTAL 0.3 mg/dL (0.2-1); BLOOD UREA NITROGEN 37.1 mg/dL (7-18); CALCIUM 8.7 mg/dL (8.5-10.1); CREATININE 0.8 mg/dL (0.55-1.3); POTASSIUM 4.7 mmol/L (3.5-5.1); TOT PROT 7.9 g/dl (6.4-8.2)
[2018-09-23 09:06] LABS: PLATELET COUNT 368 K/MM3 (134-434)
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
[2018-09-23] MEDS: MULTIVITAMINS (DAILY MVI) TABLET (FP) PO SCH (14:12)
[2018-09-23] MEDS: FOLIC ACID 1 MG TABLET (FP) PO SCH (14:12)
[2018-09-23] MEDS: LIDOCAINE 5% TOPICAL PATCH TP SCH (14:17)
[2018-09-23] MEDS: THIAMINE HCL 200 MG/2 ML VIAL IVPB SCH (14:17)
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
[2018-09-23 20:09] VITALS: BP 120/86; PULSE 78; TEMP 98.7
[2018-09-23] MEDS: LIDOCAINE PATCH REMOVAL MC SCH (23:06)
[2018-09-24] MEDS ORDERED: KETOROLAC TROMETHAMINE 30 MG/1 ML VIAL IM ONE (02:55)
--- NOTE | 2018-09-24 07:40 | PDOC ---
Patient Follow-up (Call Back) - Post ED Follow - Up Condition at time of discharge: Stable Disposition at time of original discharge: AGAINST MEDICAL ADVICE - Disposition Additional Instructions/Notes: Received call from radiologist that pelvis xray concerning for irregularity at pubic symphsis, with ?fx at base of left pubic symphsis. Patient was noted to have been admitted for L1 fx but left AMA. Attempted to contact patient, but unable to get in touch; voicemail left. Patient placed in callback book.
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
== END 2018-09-24 03:45 | disposition left against medical advice (07) | DRG 552 ==
LOC: JER 17:02 → JERBED 20:49 → OBSVTOIN 20:49 → J6S 09-22 00:32
PROVIDERS: ADMIT Internal Medicine
DX: S32.018A Other fracture of first lumbar vertebra, initial encounter for closed fracture (principal); F11.20 Opioid dependence, uncomplicated; M54.16 Radiculopathy, lumbar region; F10.10 Alcohol abuse, uncomplicated; F14.10 Cocaine abuse, uncomplicated; K25.9 Gastric ulcer, unspecified as acute or chronic, without hemorrhage or perforation; B19.20 Unspecified viral hepatitis C without hepatic coma; M54.40 Lumbago with sciatica, unspecified side; M25.552 Pain in left hip; G89.29 Other chronic pain; R76.11 Nonspecific reaction to tuberculin skin test without active tuberculosis; Y92.89 Other specified places as the place of occurrence of the external cause; V09.9XXA Pedestrian injured in unspecified transport accident, initial encounter; Z59.0 Homelessness; Z86.79 Personal history of other diseases of the circulatory system
CPT/HCPCS: 36415; 71045-TC-FY; 72158-TC; 73523-TC-FY; 80053; 83735; 84100; 85025; 85610; 85730; 87040; 87389; 93005; 93010; 93306-TC; 96372; 96374; 97116-GP; 97162-GP; 99282-25; A9579